=== PATIENT | male | born 1990 | race African-American/Black ===

== ENCOUNTER 2020-09-19 09:22 | Outpatient (REF) | payer OTHER, SELFPAY ==
[2020-09-19 12:19] LABS: Alanine Aminotransferase 13 U/L (0-40); Albumin Level 4.4 g/dL (3.5-5.0); Alkaline Phosphatase 52 U/L (39-117); Anion Gap 12 (12-20); Aspartate Amino Transferase 22 U/L (5-37); Bilirubin Total 0.6 mg/dL (0.0-1.0); Blood Urea Nitrogen 12 mg/dL (9-16); Calcium 8.9 mg/dL (8.4-10.2); Carbon Dioxide 29 mmol/L (22-29); Chloride 105 mmol/L (96-108); Cholesterol 173 mg/dL; Estimated Glomerular Filt Rate > 60; Glucose Fasting 71 mg/dL (60-99); HDL Cholesterol 71 mg/dL; LDL Cholesterol Calculated 93 mg/dl; Potassium 4.2 mmol/l (3.3-5.1); Sodium 142 mmol/L (135-145); Total Protein 6.8 g/dL (6.5-8.0); Triglycerides 46 mg/dL
[2020-09-19 12:47] LABS: TSH reflex Free T4 0.17 mIU/mL (0.32-4.0)
[2020-09-19 13:49] LABS: Free T4 (Free Thyroxine) 0.97 ng/dL (0.71-1.85)
== END 2020-09-19 09:23 | disposition home or self-care (01) ==
LOC: HO.HMGCLDS 09:22
PROVIDERS: PCP Nurse Practitioner Family; Visit Provider Nurse Practitioner Family
DX: Z00.00 Encounter for general adult medical examination without abnormal findings (principal); R79.89 Other specified abnormal findings of blood chemistry
CPT/HCPCS: 80053; 80061; 84439; 84443

== ENCOUNTER 2020-09-29 10:09 | Outpatient (REF) | payer OTHER, SELFPAY ==
--- NOTE | 2020-09-29 10:13 | US_ITS ---
EXAMINATION: US THYROID CLINICAL INFORMATION: Other specified abnormal findings of blood chemistry. COMPARISON: None TECHNIQUE: Linear transducer bush-scale and color Doppler examination with attention to the region of the thyroid. FINDINGS: SIZE: Measurements of the thyroid lobes and nodules are given in sagittal, anteroposterior and transverse dimensions respectively. The thyroid gland is normal in size. Right Thyroid Lobe: 5.83 x 1.23 x 2.04 cm, volume 7.63 mL. Parenchyma: The gland echotexture is homogeneous. Thyroid vascularity is normal. Left Thyroid Lobe: 5.50 x 1.32 x 1.88 cm, volume 7.12 mL. Parenchyma: The gland echotexture is homogeneous. Thyroid vascularity is normal. Isthmus: 0.42 cm in maximum AP dimension. RIGHT THYROID LOBE: There is 1 nodule seen. 1. Location: Inferior. Size: 0.77 x 0.50 x 0.61 cm. Nodule characteristics: Heterogeneous, smooth margin, calcification and positive intranodular flow. ISTHMUS: No nodules. LEFT THYROID LOBE: No nodules. NODES: No lymphadenopathy is seen in the tissue surrounding the thyroid gland. US/US thyroid IMPRESSION: Solitary right thyroid nodule. Fine-needle aspiration and continued ultrasound follow up recommended.
== END 2020-09-29 10:10 | disposition home or self-care (01) ==
LOC: HO.HMGCX 10:09
PROVIDERS: Visit Provider Nurse Practitioner Family
DX: R79.89 Other specified abnormal findings of blood chemistry (principal)
CPT/HCPCS: 76536

== ENCOUNTER 2021-01-02 13:59 | Outpatient (REF) | payer OTHER, SELFPAY ==
--- NOTE | ~2021-01-02 | XR_ITS ---
EXAMINATION: XR FINGER, RIGHT CLINICAL INFORMATION: Pain. COMPARISON: None TECHNIQUE: 3 views of the right 1st digit. FINDINGS: FIRST DIGIT: No acute fracture or dislocation is seen. The 1st MCP, IP joints maintained. No abnormal soft tissue calcification. No acute fracture is identified in the remainder of the visualized bones. There is a small nonspecific rounded lucency in the proximal scaphoid. No apparent significant arthropathy. XR/XR finger RT min 2V IMPRESSION: No evidence of acute fracture or dislocation of the 1st digit.
== END 2021-01-02 14:00 | disposition home or self-care (01) ==
LOC: HO.HMGCX 13:59
PROVIDERS: PCP Nurse Practitioner Family; Visit Provider Nurse Practitioner Family
DX: M79.646 Pain in unspecified finger(s) (principal)
CPT/HCPCS: 73140

== ENCOUNTER → 2021-02-28 14:27 | Outpatient (BNVA) | payer OTHER, SELFPAY | PROVIDERS: Visit Provider Orthopaedic Surgery | DX: M79.644 Pain in right finger(s) (principal) | CPT/HCPCS: 99202 ==

== ENCOUNTER 2021-06-01 15:01 | Outpatient (REF) | payer OTHER, SELFPAY ==
--- NOTE | ~2021-06-01 | MR_ITS ---
EXAMINATION: MRI HAND WITHOUT CONTRAST, RIGHT CLINICAL INFORMATION: Lump on the thumb COMPARISON: Radiographs 01/02/2021 TECHNIQUE: MRI without contrast is performed on the right hand with attention to the thumb. A skin marker is placed over the site of palpable concern, dorsal to the 1st MCP joint. FINDINGS: There is a somewhat rounded focus of intermediate signal at the dorsal/ulnar aspect of the 1st metacarpal head which elevates the sagittal band on series 4, image 14 which is located deep to the skin marker and presumably represents the palpable abnormality. This is a nonspecific finding. There is no joint effusion. No exostosis. No acute osseous abnormality. There may be minimal degenerative change of the 1st MCP joint. The flexor and extensor tendons appear intact. Collateral ligaments are grossly intact although suboptimally evaluated given the large [id number] and imaging planes utilized to image the entire hand rather than the thumb specifically. MR/MR hand RT wo con IMPRESSION: Nonspecific 4 mm focus of intermediate signal along the dorsal/ulnar aspect of the 1st metacarpal head. This appears to be separate from the extensor tendon. No joint effusion or exostosis. If further imaging evaluation is desired, an ultrasound could be considered.
== END 2021-06-01 15:02 | disposition home or self-care (01) ==
LOC: HO.MRI 15:01
PROVIDERS: PCP Nurse Practitioner Family; Visit Provider Orthopaedic Surgery
DX: M79.644 Pain in right finger(s) (principal)
CPT/HCPCS: 73218

== ENCOUNTER 2021-12-11 12:32 | Outpatient (REF) | payer OTHER, SELFPAY ==
--- NOTE | ~2021-12-11 | XR_ITS ---
EXAMINATION: XR HAND, RIGHT CLINICAL INFORMATION: Pain COMPARISON: Previous right finger x-ray December 2020 TECHNIQUE: PA, lateral, and oblique views of the right hand. FINDINGS: Bone alignment is normal. No fracture or dislocation is seen. There are small osteophytes at the first MCP joint. There is new cortical thickening/bony protuberance or osteophyte off the radial and dorsal side of the first metacarpal head. There is overlying soft tissue swelling. Joint spaces are otherwise normal. There is a small cyst in the scaphoid bone. XR/XR hand RT min 3V IMPRESSION: Small osteophytes at the first MCP joint. Increasing cortical thickening/bony protuberance or osteophyte at the radial and dorsal side of the first metacarpal head and overlying soft tissue swelling.
== END 2021-12-11 12:33 | disposition home or self-care (01) ==
LOC: HO.HOSX 12:32
PROVIDERS: PCP Nurse Practitioner Family; Visit Provider Orthopaedic Surgery
DX: M79.641 Pain in right hand (principal); M79.644 Pain in right finger(s)
CPT/HCPCS: 73130; 99212

== ENCOUNTER 2023-12-15 09:45 | Outpatient (AMB) | payer OTHER, SELFPAY ==
--- NOTE | 2023-12-15 11:16 | AM.OFFWIN_ITS ---
Intake Vital Signs 12/15/23 11:17 Height 5 ft 10 in Weight 183 lb BMI 26.3 BP 130/70 Blood Pressure Location Lt brachial Position Sitting Pulse 77 Pulse Source Pulse Oximeter Temp 98.2 F Temp Source Temporal Artery Scan Pulse Oximetry (%) 98 Oxygen Delivery Method Room Air Intake Visit Reasons: EP back pain flares diff areas Intake Note: pt is here today for back pain flares diff areas started 2 weeks ago Patient Tobacco Use Status: Never used Tobacco Allergies Environmental Allergy (Unknown, Uncoded 01/25/22 09:16) unknown Do you need a note to return to daycare/school/sports/work: Yes HPI HPI Comments History of Present Illness Details Patient presents to the walk-in today for sick visit Complaining of pain across his shoulders and neck for past 2 weeks Started after he was throwing away something in a dumpster Pain is worse with range of motion and palpation Denies sharp shooting stabbing electrical pains down either arm Patient has been taking Tylenol and Motrin without improvement of his symptoms He has been out of work since last Friday, requesting work note [facility] Medical History History of short term memory loss Insomnia due to medical condition Low TSH level Vitamin D deficiency Family History Father No problems noted. Mother Asthma Diabetes mellitus COPD (chronic obstructive pulmonary disease) Maternal Grandfather No problems noted. Maternal Grandmother No problems noted. Paternal Grandfather No problems noted. Paternal Grandmother No problems noted. Brother No problems noted. Brother No problems noted. Brother No problems noted. Brother No problems noted. Brother No problems noted. Sister No problems noted. Son No problems noted. Daughter No problems noted. Social History Alcohol intake: current Alcohol intake frequency: a few times a month Patient Tobacco Use Status: Never used Tobacco Current occupational status: employed Current occupation: contractor/ right handed Review of Systems Const All systems reviewed & are unremarkable except as noted in HPI and below Physical Exam Vital Signs: Last Vital Signs Temp 98.2 F 12/15/23 11:17 Pulse 77 12/15/23 11:17 BP 130/70 12/15/23 11:17 Pulse Ox 98 12/15/23 11:17 Oxygen Delivery Method Room Air 12/15/23 11:17 BMI result Body Mass Index 26.3 Cervical Spine: Visible inspection without gross abnormality Moderate tenderness throughout bilateral upper and middle trapezius muscles Tender to palpation over cervical paraspinal muscles Decreased cervical ROM in all planes with moderate pain increased with range of motion Spurling compression test positive BUE strength 5/5 Results Reviewed Results Reviewed: X-ray cervical spine ordered and independently reviewed: No bony abnormality Assessment & Plan Assessment & Plan (1) Cervicalgia: Code(s): M54.2 - Cervicalgia (2) Trapezius muscle strain: Code(s): S46.819A - Strain of other muscles, fascia and tendons at shoulder and upper arm level, unspecified arm, initial encounter Plan Trapezius muscle strain: Cyclobenzaprine 5 mg p.o. t.i.d. as needed. Patient advised on cautions for use including no alcohol, driving or use of other SHEEP [employer]IPPER depressants while taking this medication Diclofenac 50 mg p.o. b.i.d. as needed. Do not take any other anti-inflammatory medications X-rays cervical spine ordered for evaluation. Follow-up with primary care doctor if symptoms persist, may benefit from physical therapy referral All questions and concerns answered patient agrees with the plan Orders: Orders XR cervical spine w flex/ext Today M54.2 - Cervicalgia Medications: New cyclobenzaprine 5 mg PO TID PRN 30 tabs 0RF muscle spasm diclofenac potassium 50 mg PO BID 30 tabs 0RF Coding Level of Care Code Est Pt Level 4 (78253) Diagnoses Cervicalgia M54.2 Trapezius muscle strain S46.819A
[2023-12-15 11:17] VITALS: BP 130/70; PULSE 77; TEMP 36.8; O2SAT 98; BMI 26.3
== END 2023-12-15 11:54 | disposition home or self-care (01) ==
PROVIDERS: PCP Nurse Practitioner Family; Visit Provider Registered Nurse Emergency
DX: M54.2 Cervicalgia (principal); S46.811A Strain of other muscles, fascia and tendons at shoulder and upper arm level, right arm, initial encounter; S46.812A Strain of other muscles, fascia and tendons at shoulder and upper arm level, left arm, initial encounter
CPT/HCPCS: 99213

== ENCOUNTER 2023-12-15 11:41 | Outpatient (REF) | payer OTHER, SELFPAY ==
--- NOTE | ~2023-12-15 | XR_ITS ---
EXAMINATION: XR CERVICAL SPINE CLINICAL INFORMATION: Neck pain. COMPARISON: Cervical spine radiographs dated 11/05/2017. TECHNIQUE: AP, lateral, swimmer's, open-mouth, flexion, extension views of the cervical spine. FINDINGS: Straightening of the normal cervical lordosis which may be positional or related to muscular spasm. No acute fracture or subluxation. Normal atlantoaxial alignment. No loss of vertebral body or intervertebral disc. No lytic or blastic osseous lesion. Unremarkable prevertebral soft tissues. No concerning lytic or blastic osseous lesion. No significant subluxation with flexion or extension. XR/XR cervical spine w flex/ext IMPRESSION: 1. Straightening of the normal cervical lordosis which may be positional or related to muscular spasm. 2. No significant subluxation with flexion or extension.
== END 2023-12-15 11:42 | disposition home or self-care (01) ==
LOC: HO.HMGCX 11:41
PROVIDERS: PCP Nurse Practitioner Family; Visit Provider Registered Nurse Emergency
DX: M54.2 Cervicalgia (principal)
CPT/HCPCS: 72052

== ENCOUNTER 2023-12-24 09:06 | Outpatient (AMB) | payer OTHER, SELFPAY ==
--- NOTE | 2023-12-24 10:00 | AM.OFFWIN_ITS ---
Intake Vital Signs 12/24/23 10:01 12/24/23 10:01 Height 5 ft 10 in 5 ft 10 in Weight 186 lb BMI 26.7 BP 114/72 Blood Pressure Location Rt brachial Position Sitting Pulse 87 Pulse Source Pulse Oximeter Pulse Oximetry (%) 97 Oxygen Delivery Method Room Air Intake Visit Reasons: EST/shoulder and neck spasms(lobby) Intake Note: pt is here today for shoulder and neck spasms Patient Tobacco Use Status: Never used Tobacco Allergies Environmental Allergy (Unknown, Uncoded 12/24/23 10:36) unknown Medication List - Last Reconciled 12/24/23 by Cristhian Navas MD cyclobenzaprine 5 mg PO TID PRN diclofenac potassium 50 mg PO BID Do you need a note to return to daycare/school/sports/work: No HPI EST/shoulder and neck spasms(lobby) HPI Details 33-year-old male presents to the office for a sick visit. Patient reports that his neck and shoulder pain is not improving. In the last office visit he got nonsteroidals and muscle relaxant. Symptoms started on December 09 when he was trying to toss a heavy bag of garbage into a trash container. Complains of pain in both shoulders and in the neck area. Relief is on sitting down, aggravated by moving or lifting the arm over the shoulder level. He reports he has not able to work in this condition. [facility] Medical History History of short term memory loss Insomnia due to medical condition Low TSH level Vitamin D deficiency Family History Father No problems noted. Mother Asthma Diabetes mellitus COPD (chronic obstructive pulmonary disease) Maternal Grandfather No problems noted. Maternal Grandmother No problems noted. Paternal Grandfather No problems noted. Paternal Grandmother No problems noted. Brother No problems noted. Brother No problems noted. Brother No problems noted. Brother No problems noted. Brother No problems noted. Sister No problems noted. Son No problems noted. Daughter No problems noted. Social History Alcohol intake: current Alcohol intake frequency: a few times a month Patient Tobacco Use Status: Never used Tobacco Current occupational status: employed Current occupation: contractor/ right handed Physical Exam Vital Signs: Last Vital Signs Pulse 87 12/24/23 10:01 BP 114/72 12/24/23 10:01 Pulse Ox 97 12/24/23 10:01 Oxygen Delivery Method Room Air 12/24/23 10:01 BMI result Body Mass Index 26.7 Const General: cooperative and healthy appearing Nutritional Appearance: well nourished Orientation/consciousness: patient oriented x3 Limitations: no limitations HEENT Head: Yes normal to inspection Eyes General: appearance normal, both eyes and all related structures Neck Other: Bilateral trapezius muscle strain. Neck: Yes normal visual inspection Chest Chest palpation & inspection: normal palpation of entire chest wall Resp Effort & Inspection: normal respiratory effort Neuro General: patient oriented x3 Assessment & Plan Assessment & Plan (1) Trapezius muscle strain: Code(s): S46.819A - Strain of other muscles, fascia and tendons at shoulder and upper arm level, unspecified arm, initial encounter Plan: Note for work given. Physical therapy added to the regimen. If symptoms do not improve to follow-up here. Coding Level of Care Code Est Pt Level 3 (82333) Diagnoses Trapezius muscle strain S46.819A
[2023-12-24 10:01] VITALS: BP 114/72; PULSE 87; O2SAT 97; BMI 26.7
== END 2023-12-24 11:15 | disposition home or self-care (01) ==
PROVIDERS: PCP Nurse Practitioner Family; Visit Provider Internal Medicine
DX: S46.819A Strain of other muscles, fascia and tendons at shoulder and upper arm level, unspecified arm, initial encounter (principal)
CPT/HCPCS: 99213

== ENCOUNTER 2024-02-16 08:00 | Outpatient (RCR) | payer OTHER, SELFPAY ==
--- NOTE | 2024-01-20 17:51 | MHC.PT.EP ---
[facility] [place] Office [place] Office [place] Office [address] Bret Matias [address] [phone] F: [phone] F: [phone] F: [phone] F: [phone] Physical Therapy Plan of Care Date of Evaluation: 01/19/24 Date of Surgery: Diagnosis: Strain of other muscles, fascia and tendons at shoulder and upper arm, unspecified arm. 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 treat for strain of other muscles, fascia and tendons at shoulder and upper arm, unspecified arm who reports 2 weeks ago (December 03) he was throwing garbage in a bin at work and reports 2 days later he was in excruciating pain of his cervical spine and B upper shoulders; his current condition results in decreased tolerance for driving, reports 3/4 disturbed night's sleep, Lifting objects of weight, cervical flexion activities and reading, laying down, and placing objects on high shelf secondary to decreased cervical and B shoulder AROM, increased cervical accessory tissue tension, UE n/t sensation, guarded posturing, decreased cervical and UE strength, and pain. Pt is deemed an appropriate candidate to receive skilled PT services to address their physical impairments in order to improve their functional ability. Frequency and Duration: The patient will be seen 2 x / wk x 4 wks. Short Term Goals: initiate home program. Full B shoulder flexion AROM achieved. symmetrical cervical rotation achieved. Museum L[employer]arian Goals: I with home program. Improve NDI by at least 9 points. Improve SPADI by at least 13 points. Pt will report at most 1/4 disturbed night's sleep d/t cervical/ shoulder pain; initial: 3/4 disturbed Pt will be able to reach high shelves with managed Sx; initial 5/10 pain/ difficulty. Treatment Plan: Modalities to reduce pain, spasms and effusion. Manual therapy to restore motion and function. Therapeutic exercise to improve strength and flexibility. Neuromuscular re-education for posture and balance. Therapeutic activities to return to functional activities of daily living. Electronically signed by: Chano Rosario PT. Please sign and return to therapist. Thank you for your referral.
--- NOTE | 2024-06-18 09:50 | MHC.PT.DC ---
[facility] [place] Office [place] Office [place] Office [address] Bret Matias [address] [phone] F: [phone] F: [phone] F: [phone] F: [phone] Physical Therapy Discharge Report Diagnosis: Strain of other muscles, fascia and tendons at shoulder and upper arm, unspecified arm. Date of Surgery: Date of Evaluation: 01/28/24 Date of Discharge: 06/18/24 Treatments to Date: 8 Cancellations to Date: No Shows to Date: Discharge Status: Improved Function Independent with HEP Patient Elected to Stop Discharge Summary: . Electronically signed by: Chano Rosario PT. Please sign and return to therapist. Thank you for your referral.
== END 2024-06-18 09:49 | disposition home or self-care (01) ==
LOC: HO.PT 08:00
PROVIDERS: PCP Nurse Practitioner Family; Visit Provider Internal Medicine
DX: S46.811D Strain of other muscles, fascia and tendons at shoulder and upper arm level, right arm, subsequent encounter (principal); S46.812D Strain of other muscles, fascia and tendons at shoulder and upper arm level, left arm, subsequent encounter
CPT/HCPCS: 97014; 97110; 97140; 97161; 97535

== ENCOUNTER 2024-06-09 15:07 | Outpatient (AMB) | payer OTHER, SELFPAY ==
--- NOTE | 2024-06-09 15:09 | MHC.PC.OV ---
Vital Signs 06/09/24 15:10 Height 5 ft 10 in Weight 189 lb BMI 27.1 BP 110/64 Blood Pressure Location Rt brachial Position Sitting Pulse 58 Pulse Source Pulse Oximeter Pulse Oximetry (%) 98 Oxygen Delivery Method Room Air Intake Visit Reasons: reestablish care, last seen on 2019 Intake Note: Patient here to re establish care Allergies Environmental Allergy (Unknown, Uncoded 06/09/24 15:11) unknown Tobacco use date assessed: 06/09/24 Dental Screening Dental Screen Date: 06/09/24 Did you have a dental visit in the last 12 months?: Yes Did you have a dental problem in the last 6 months where you did not have access to dental care?: No Was dental information given to patient?: Patient has dentist HPI reestablish care, last seen on 2019 HPI Details Pt is here for a PE. Will order labs. [facility] Medical History History of short term memory loss Insomnia due to medical condition Low TSH level Vitamin D deficiency Family History Father No problems noted. Mother Asthma Diabetes mellitus COPD (chronic obstructive pulmonary disease) Maternal Grandfather No problems noted. Maternal Grandmother No problems noted. Paternal Grandfather No problems noted. Paternal Grandmother No problems noted. Brother No problems noted. Brother No problems noted. Brother No problems noted. Brother No problems noted. Brother No problems noted. Sister No problems noted. Son No problems noted. Daughter No problems noted. Social History Alcohol intake: current Alcohol intake frequency: a few times a month Patient Tobacco Use Status: Never used Tobacco Current occupational status: employed Current occupation: contractor/ right handed Cognitive needs: No Hearing needs: No Vision needs: No Questionnaire PHQ-9 Over the last 2 weeks, how often have you been bothered by any of the following problems? 1. Little interest or pleasure in doing things: several days 2. Feeling down, depressed, or hopeless: several days 3. Trouble falling or staying asleep, or sleeping too much: several days 4. Feeling tired or having little energy: several days 5. Poor appetite or overeating: not at all 6. Feeling bad about yourself - or that you are a failure or have let yourself or your family down: not at all 7. Trouble concentrating on things, such as reading the newspaper or watching television: several days 8. Moving or speaking so slowly that other people could have noticed. Or the opposite - being so fidgety or restless that you have been moving around a lot more than usual: not at all 9. Thoughts that you would be better off or of hurting yourself in some way: not at all Total score: 5 Depression Screening Interpretation: Negative Depression Screening Done: Yes 89861 - PHQ-9 Billing: Yes Source: Developed by Drs. Alcides Manuel, Kathy Burkett, Attila Alfaro and colleagues, with an educational tommy from [employer]. Thrive Questionnaire I am a: Patient What is your living situation today?: I have a steady place to live Within the past 12 months, did the food you bought not last and you didn't have the money to get more?: Never true Within the past 12 months, did you worry whether your food would run out before you got money to buy more?: Never true Do you have trouble paying for medicines?: No Do you have trouble getting transportation to medical appointments?: No Do you have trouble paying your heating and electricity bill?: No Do you have trouble taking care of your child, family member or friend?: No Do you have trouble with day-to-day activities such as bathing, preparing meals, shopping, managing finances, etc.?: No Are you currently unemployed and looking for a job?: No Are you interested in more education?: No Please select the resources that you would like help with: Housing/Longterm, Food, Transportation, Utilities, Childcare and Daily support Currently or been in a relationship where the following occur: No concerns reported THRIVE Score: 0 AUDIT C Alcohol Use Questionnaire (AUDIT-C) 1. How often do you have a drink containing alcohol?: Monthly or less 2. How many drinks containing alcohol do you have on a typical day when you are drinking?: 1 or 2 3. How often do you have six or more drinks on one occasion?: Less than monthly Total Score: 2 Score Reviewed/Action Taken: No ALFONSO-7 AMB Questionnaire ALFONSO-7 Date ALFONSO - 7 assessed: 06/09/24 Feeling nervous, anxious, or on edge: 1 = Several days Not being able to stop or control worryin = Not at all Worrying too much about different things: 0 = Not at all Trouble relaxin = Several days Being so restless that it is hard to sit still: 1 = Several days Becoming easily annoyed or irritable: 1 = Several days Feeling afraid as if something awful might happen: 0 = Not at all Total ALFONSO-7 score (0-4 normal; 5-9 mild; 10-14 moderate; 15-21 severe): 4 Source: Developed by Drs. Alcides Manuel, Kathy Burkett, Attila Alfaro and colleagues, with an educational tommy from [employer]. ALFONSO-7 Assessment Billing ALFONSO-7 Assessment Tool: ALFONSO-7 Assessment 95703 Review of Systems Const Denies chills and Denies fever(s) Eyes Denies blurry vision ENT Denies vertigo, Denies dizziness and Denies sore throat Card Denies chest pain at rest, Denies chest pain with activity, Denies diaphoresis, Denies dyspnea and Denies dyspnea on exertion Resp Denies cough, Denies dyspnea, Denies dyspnea on exertion and Denies wheezing GI Denies abdominal pain, Denies melena, Denies hematochezia, Denies constipation, Denies diarrhea and Denies loose stools Denies hematuria Musc Denies numbness and Denies tingling Skin/Breast Denies lesions Neuro Denies vertigo, Denies dizziness, Denies numbness and Denies tingling Psych Denies anxiety, Denies depression, Denies homicidal ideation, Denies suicidal ideation and Denies other (substance abuse) Aller/Immun Denies wheezing Physical exam (Primary Care) Vital Signs: Last Vital Signs Pulse 58 06/09/24 15:10 BP 110/64 06/09/24 15:10 Pulse Ox 98 06/09/24 15:10 Oxygen Delivery Method Room Air 06/09/24 15:10 BMI result Body Mass Index 27.1 Tobacco/Smoking Status: Tobacco use Status Tobacco use date assessed 06/09/24 06/09/24 15:13 Patient Tobacco Use Status Never used Tobacco 06/09/24 15:10 PHQ-9: PHQ-9 Score PHQ-9: Total score 5 06/09/24 15:13 Depression Screening Interpretation: Negative Currently or been in a relationship where the following occur: No concerns reported Const General: cooperative Nutritional Appearance: well nourished Orientation/consciousness: patient oriented x3 HENMT Head: Yes normal to inspection, Yes normocephalic and Yes atraumatic Ears: TM's normal bilaterally Eyes General: appearance normal, both eyes and all related structures Alignment and Position: alignment normal and position normal Neck Neck: Yes normal visual inspection and Yes no lymphadenopathy Thyroid: Thyroid normal Resp Effort & Inspection: normal respiratory effort Auscultation: clear to auscultation bilaterally Cardio Rate: regular rate Rhythm: regular rhythm Heart sounds: S1 normal heart sound present, S2 normal heart sound present and no murmurs GI Palpation (GI): Soft to palpation and nontender Auscultation: normal bowel sounds Male General Exam: Yes normal external exam Penis: normal penis Scrotum: scrotum normal, testes descended bilaterally and no inguinal hernias Testes: no testicular mass Skin Rashes: no rashes Neuro General: patient oriented x3, moves all extremities, no focal motor deficits and deep tendon reflexes 2+ bilaterally Romberg Test: Negative Psych Appearance: grossly normal Mental Status: mental status grossly normal Speech and movement: Normal speech and movement present Affect: normal affect Attitude: cooperative Thought process: Normal thought process present Thought content: Normal thought content present Insight: Good insight present (Psych) Judgement: Good judgement present (Psych) Assessment and Plan Assessment & Plan (1) Physical exam: Code(s): Z. - Encounter for general adult medical examination without abnormal findings Plan: Labs ordered Plan The patient agreed to the use of a medical customer service representative for this encounter. Scribed for WHITNEY Darnell by Modesta Brown medical customer service representative, on 06/09/2024 at 15:15 EST. Orders: Orders Lipid Panel Today Z00.00 - Encounter for general adult medical examination without abnormal findings Complete Blood Count Auto Diff Today Z00.00 - Encounter for general adult medical examination without abnormal findings Comprehensive [place]. Panel Fast Today Z00.00 - Encounter for general adult medical examination without abnormal findings TSH reflex Free T4 Today Z00.00 - Encounter for general adult medical examination without abnormal findings UA CC w/rflx Micro + Cult Today Z00.00 - Encounter for general adult medical examination without abnormal findings Coding Level of Care Code New Pt Prev Care 18-39yr(16659 Diagnoses Physical exam Z00.00 Additional Codes ALFONSO-7 Assessment Billing - ALFONSO-7 Assessment Tool: ALFONSO-7 Assessment 63147 ([id number])
[2024-06-09 15:10] VITALS: BP 110/64; PULSE 58; O2SAT 98; BMI 27.1
== END 2024-06-09 15:24 | disposition home or self-care (01) ==
PROVIDERS: PCP Nurse Practitioner Family; Visit Provider Nurse Practitioner Family
DX: Z00.00 Encounter for general adult medical examination without abnormal findings (principal)
CPT/HCPCS: 99385

== ENCOUNTER 2024-08-02 13:02 | Outpatient (REF) | payer OTHER, SELFPAY ==
[2024-08-02 16:52] LABS: Appearance Urine Clear; Color Urine Yellow; Glucose Urine UA Negative (Negative); Leukocyte Esterase Urine Negative (Negative); Nitrite Urine Negative (Negative); PH 5.5 (5.0-9.0); Specific Gravity - Urine >= 1.030 (1.005-1.025); Urine Blood Negative (Negative); Urine Ketones 80 mg/dL (Negative); Urine Protein Trace mg/dL (Neg-Trace)
[2024-08-02 16:57] LABS: MANUAL DIFF FLAG NO
[2024-08-02 17:12] LABS: Basophils Absolute Auto 0.1 X10*3/uL (0.0-0.2); Eosinophils Absolute Auto 0.2 X10*3/uL (0.0-0.4); Eosinophils Percent Auto 3.4 % (0-4); Hematocrit 48.2 % (42.0-52.0); Hemoglobin 15.2 g/dl (14.0-18.0); Imm Gran Abs Auto 0.01 X10*3/uL (0.00-0.03); Imm Gran Pct Auto 0.2 % (0.0-0.4); Lymphocytes Absolute Auto 2.5 X10*3/uL (1.2-4.9); Lymphocytes Percent Auto 47.3 % (20-40); Mean Corpuscular HGB Conc 31.5 g/dl (31.0-36.0); Mean Corpuscular Hemoglobin 25.5 pg (27.0-33.0); Mean Corpuscular Volume 80.9 fL (80.0-98.0); Mean Platelet Volume 10.9 fL (9.4-12.4); Monocytes Absolute Auto 0.4 X10*3/uL (0.1-1.2); Monocytes Percent Auto 8.2 % (2-11); Neutrophils Absolute Auto 2.1 x10*3/uL (2.0-8.3); Neutrophils Percent Auto 39.9 % (45-73); Platelet Count 182 X10*3/uL (160-400); Red Blood Count 5.96 X10*6/uL (4.60-5.80); Red Cell Distribution Width 14.1 % (11.0-16.0); White Blood Count 5.2 X10*3/uL (4.8-10.8)
[2024-08-02 17:43] LABS: Alanine Aminotransferase 16 U/L (0-40); Albumin Level 4.5 g/dL (3.5-5.0); Alkaline Phosphatase 57 U/L (39-117); Anion Gap 14 (12-20); Aspartate Amino Transferase 24 U/L (5-37); Bilirubin Total 0.7 mg/dL (0.0-1.0); Blood Urea Nitrogen 9 mg/dL (9-16); Calcium 9.2 mg/dL (8.4-10.2); Carbon Dioxide 24 mmol/L (22-29); Chloride 108 mmol/L (96-108); Cholesterol 161 mg/dL (<200); Estimated Glomerular Filt Rate > 60; Glucose Fasting 78 mg/dL (60-99); HDL Cholesterol 55 mg/dL (>40); LDL Cholesterol Calculated 97 mg/dL (<100); Potassium 3.6 mmol/L (3.3-5.1); Sodium 142 mmol/L (135-145); Total Protein 7.2 g/dL (6.5-8.0); Triglycerides 48 mg/dL (<150)
[2024-08-02 17:47] LABS: TSH reflex Free T4 0.03 uIU/mL (0.32-4.0)
[2024-08-02 18:38] LABS: Free T4 (Free Thyroxine) 1.32 ng/dL (0.71-1.85)
== END 2024-08-02 13:03 | disposition home or self-care (01) ==
LOC: HO.HMGCLDS 13:02
PROVIDERS: PCP Nurse Practitioner Family; Visit Provider Nurse Practitioner Family
DX: Z00.00 Encounter for general adult medical examination without abnormal findings (principal)
CPT/HCPCS: 36415; 80053; 80061; 81003; 84439; 84443; 85025

== ENCOUNTER 2024-08-03 07:18 | Outpatient (REF) | payer OTHER, SELFPAY ==
[2024-08-04 17:03] LABS: Triiodothyronine T3 Free 3.8 pg/mL (2.3-4.2)
[2024-08-05 05:45] LABS: Thyroid Peroxidase Antibodies <1 IU/mL (<9)
[2024-08-07 20:04] LABS: Thyrotropin Receptor Antibody <1.00 IU/L (<=2.00)
== END 2024-08-03 07:19 | disposition home or self-care (01) ==
LOC: HO.HMGCLDS 07:18
PROVIDERS: PCP Nurse Practitioner Family; Visit Provider Nurse Practitioner Family
DX: R79.89 Other specified abnormal findings of blood chemistry (principal)
CPT/HCPCS: 36415; 83520; 84481; 86376

== ENCOUNTER 2024-08-03 12:40 | Outpatient (AMB) | payer OTHER, SELFPAY ==
--- NOTE | 2024-08-03 07:11 | A.OFFPC_ITS ---
Intake Visit Reasons: lab review Allergies Environmental Allergy (Unknown, Uncoded 06/09/24 15:11) unknown Tobacco use date assessed: 06/09/24 Dental Screening Dental Screen Date: 06/09/24 HPI lab review HPI Details Pt's TSH was low. He has a hx of right thyroid nodule. Pt was referred to endo in 2019 but there is no documentation on this, that he went. Will RE- refer again to endo. Will also order a follow up thyroid US. Denies fever, chills, and dizziness. [facility], [facility] Medical History History of short term memory loss Insomnia due to medical condition Low TSH level Vitamin D deficiency Family History Father No problems noted. Mother Asthma Diabetes mellitus COPD (chronic obstructive pulmonary disease) Maternal Grandfather No problems noted. Maternal Grandmother No problems noted. Paternal Grandfather No problems noted. Paternal Grandmother No problems noted. Brother No problems noted. Brother No problems noted. Brother No problems noted. Brother No problems noted. Brother No problems noted. Sister No problems noted. Son No problems noted. Daughter No problems noted. Social History Alcohol intake: current Alcohol intake frequency: a few times a month Patient Tobacco Use Status: Never used Tobacco Current occupational status: employed Current occupation: contractor/ right handed Cognitive needs: No Hearing needs: No Vision needs: No Questionnaire ALFONSO-7 AMB Questionnaire ALFONSO-7 Date ALFONSO - 7 assessed: 06/09/24 Source: Developed by Drs. Alcides Manuel, Kathy Burkett, Attila Alfaro and colleagues, with an educational tommy from [employer]. Review of Systems Const Reports as per HPI Physical exam (Primary Care) Tobacco/Smoking Status: Tobacco use Status Tobacco use date assessed 06/09/24 08/03/24 07:17 Patient Tobacco Use Status Never used Tobacco 08/03/24 07:17 Const General: cooperative Orientation/consciousness: patient oriented x3 Neuro General: patient oriented x3 Psych Appearance: grossly normal Mental Status: mental status grossly normal Speech and movement: Clear speech present Affect: normal affect Attitude: cooperative Thought process: Normal thought process present Thought content: Normal thought content present Insight: Good insight present (Psych) Judgement: Good judgement present (Psych) Telehealth Telehealth Telehealth Platform: [employer] Location of provider rendering services: practice address Location of patient: address on file Patient Identification confirmed using: Name, : Yes Telehealth method: video Patient verbally consented to treatment: Yes Patient verbally consented to billing insurance company: Yes Patient informed of any privacy concerns related to visit: Yes Minutes spent on Phone/Video with Pt.: 10 Assessment and Plan Assessment & Plan (1) Low TSH level: Code(s): R7.89 - Other specified abnormal findings of blood chemistry Plan: Referred to endo, more blood work ordered, US of thyroid Plan The patient agreed to the use of a medical apparatus model maker for this encounter. Scribed for GRACIELA Darnell-LUCA by Modesta Brown medical apparatus model maker, on 08/03/2024 at 07:10 EST. Orders: Orders Thyrotropin Receptor Antibody Today R7. - Other specified abnormal findings of blood chemistry Triiodothyronine T3 Free Today R7. - Other specified abnormal findings of blood chemistry US thyroid Today R7. - Other specified abnormal findings of blood chemistry Thyroid Peroxidase Antibodies Today R7. - Other specified abnormal findings of blood chemistry Referrals Endocrinology Referral R7. - Other specified abnormal findings of blood chemistry Coding Level of Care Code Tele Est Pt Level 3 (40452) Diagnoses Low TSH level R7.89
== END 2024-08-03 12:53 | disposition home or self-care (01) ==
LOC: HO.HMCC 12:40
PROVIDERS: PCP Nurse Practitioner Family; Visit Provider Nurse Practitioner Family
DX: R79.89 Other specified abnormal findings of blood chemistry (principal)

== ENCOUNTER 2024-12-10 08:33 | Outpatient (REF) | payer OTHER, SELFPAY ==
--- OUTSIDE RECORDS SUMMARY | 2024-12-10 08:43 | XMS_ITS | Clinical Summary ---
Author Organization [facility] ity Address [address] [place] [address] Care Team Providers Care Supervisor Jewelry Department Name Role Phone Unavailable Primary Care Provider Unavailabl e Social History Tobacco Use Types Packs/Day Years Used Date Smoking Tobacco: Never Assessed Sex and Gender Information Value Date Recorded Sex Assigned at Not on file Gender Identity Not on file Sexual Orientation Not on file Plan of Treatment Health Maintenance Due Date Last Done Comments DTaP,Tdap,and Td Vaccines (1 - Tdap) 2008 Hepatitis B Vaccines (1 of 3 - 19+ 3-dose series) 2008 COVID-19 Vaccine (2023-2 5 season) 2024 Influenza Vaccine (#1) 2024 HIB Vaccines Aged Out No longer eligi ble based on patient's age to complete this topic HPV Vaccines Aged Out No longer eligi ble based on patient's age to complete this topic Hepatitis A Vaccines Aged Out No long er eligible based on patient's age to complete this topic IPV Vaccines Aged Out No longer eligi ble based on patient's age to complete this topic MMR Vaccines Aged Out No longer eligi ble based on patient's age to complete this topic Meningococcal ACWY Vaccine Aged Out N o longer eligible based on patient's age to complete this topic Pneumococcal Vaccine: Pediat rics (0 to 5 Years) and At-Risk Patients (6 to 64 Years) Aged Out No longer eligible b ased on patient's age to complete this topic RSV Immunization Patients Un yas 20 months Aged Out No longer eligible b ased on patient's age to complete this topic Varicella Vaccines Aged Out No longer eligible based on patient's age to complete this topic
[2024-12-13 10:18] LABS: TS Negative Control Passed; TS Panel A 1; TS Panel B 1; TS Positive Control Passed; TSpotTB Negative (Negative)
== END 2024-12-10 08:34 | disposition home or self-care (01) ==
LOC: HO.HMGCLDS 08:33
PROVIDERS: PCP Nurse Practitioner Family; Visit Provider Nurse Practitioner Family
DX: Z11.1 Encounter for screening for respiratory tuberculosis (principal)
CPT/HCPCS: 36415; 86481